=== PATIENT | female | born 1980 | race Hispanic/Latino ===

== ENCOUNTER 2017-05-28 23:05 | Inpatient (IN) | payer BC, MEDICAID ==
[~2017-05-28] VITALS: Ht 167.6 cm; Wt 150.1 kg
[2017-05-28] MEDS ORDERED: LACTATED RINGERS 1000ML 1,000 ML IV PRN (23:46)
[2017-05-28 23:47] LABS: BILIRUBIN,URINE Negative (NEGATIVE); COLOR,URINE Yellow (YELLOW); GLUCOSE, URINE (UA) Negative (NEGATIVE); KETONES,URINE Negative (NEGATIVE); LEUKOCYTE ESTERASE ,URINE Large (NEGATIVE); NITRATE,URINE Negative (NEGATIVE); OCCULT BLOOD,URINE Large (NEGATIVE); PH,URINE 6.5 (5.0-8.0); PROTEIN,URINE Negative (NEGATIVE)
[2017-05-28 23:52] LABS: APPEARANCE,URINE SLIGHTLY CLOUDY (CLEAR)
[2017-05-28 23:57] LABS: HEMATOCRIT 34.6 % (36-48); MEAN CORPUSCULAR HEMOGLOBIN 27.3 pg (27.0-33.0); MEAN CORPUSCULAR HGB CONC 33.4 g/dL (32.0-36.0); MEAN CORPUSCULAR VOLUME 81.7 fL (79-99); PLATELET COUNT (AUTO) 224 K/uL (130-400); RED BLOOD CELL COUNT(AUTO) 4.23 MIL/uL (4.00-5.50); WHITE BLOOD COUNT (AUTO) 13.4 K/uL (4.8-10.8)
[2017-05-28 23:57] LABS: BACTERIA,URINE Few /HPF (None Seen); WBC,URINE 26-50 /HPF (0-1)
[2017-05-28 23:58] LABS: SQUAMOUS EPITHELIAL CELL,UR Few /LPF (0-2)
[2017-05-29] MEDS ORDERED: BUTORPHANOL TARTRATE 2 MG/ML IVP ONE
[2017-05-29] MEDS ORDERED: LIDOCAINE HCL 1% 20 ML VIAL ONE (02:38)
[2017-05-29] MEDS ORDERED: OXYTOCIN 10 USP UNITS/ML ONE ×2 (02:38→09:20)
[2017-05-29] MEDS: OXYTOCIN-LR 20 UNITS/1000 ML 1,000 ML IV SCH ×2 (03:05→09:25)
[2017-05-29] MEDS ORDERED: ACETAMINOPHEN 325 MG TAB PO PRN (03:45)
[2017-05-29] MEDS ORDERED: BENZOCAINE/LANOLIN/ALOE VERA 60 ML AEROSOL TP PRN (03:45)
[2017-05-29] MEDS ORDERED: IBUPROFEN 600 MG TABLET PO PRN (03:45)
[2017-05-29] MEDS ORDERED: DIPH,PERTUSS(ACELL),TET VAC/PF 0.5 ML VIAL IM PRN (03:45)
[2017-05-29] MEDS ORDERED: LANOLIN 30GM OINTMENT TP PRN (03:45)
[2017-05-29] MEDS ORDERED: WITCH HAZEL 1 PAD TP PRN (03:45)
[2017-05-29] MEDS: IBUPROFEN 800 MG TAB PO PRN ×3 (04:14→21:07)
[2017-05-29 06:59] LABS: RAPID PLASMA REAGIN NONREACTIVE (NONREACTIVE)
[2017-05-29] MEDS ORDERED: LACTATED RINGERS 1000ML 1,000 ML IV ONE (09:19)
[2017-05-29 11:47] VITALS: BP 118/65
[2017-05-29 17:31] VITALS: BP 121/68
[2017-05-29 19:30] VITALS: BP 98/56
[2017-05-29] MEDS: DOCUSATE SODIUM 100 MG CAP PO SCH (21:07)
[2017-05-30 00:05] VITALS: BP 99/54
[2017-05-30 04:00] VITALS: BP 95/51
[2017-05-30 06:44] LABS: HEMATOCRIT 32.9 % (36-48); MEAN CORPUSCULAR HEMOGLOBIN 27.7 pg (27.0-33.0); MEAN CORPUSCULAR HGB CONC 33.6 g/dL (32.0-36.0); MEAN CORPUSCULAR VOLUME 82.5 fL (79-99); PLATELET COUNT (AUTO) 244 K/uL (130-400); RED BLOOD CELL COUNT(AUTO) 3.98 MIL/uL (4.00-5.50); RED CELL DISTRIBUTION WIDTH 14.9 % (11.0-15.5); WHITE BLOOD COUNT (AUTO) 12.4 K/uL (4.8-10.8)
[2017-05-30 07:32] VITALS: BP 111/66
[2017-05-30] MEDS: IBUPROFEN 800 MG TAB PO PRN (07:44)
[2017-05-30] MEDS: DOCUSATE SODIUM 100 MG CAP PO SCH (09:25)
[2017-05-30 11:22] VITALS: BP 115/63
[2017-05-30 15:43] VITALS: BP 106/56
[2017-05-31 05:19] LABS: HEPATITIS Bs ANTIGEN SCREEN P Negative (Negative)
== END 2017-05-30 15:55 | disposition home or self-care (01) | DRG 775 ==
LOC: EDH 23:05 → LDH 23:10 → OBSVTOIN 23:10 → WSH 05-29 17:07
PROVIDERS: ADMIT Obstetrics & Gynecology; ATTEND Obstetrics & Gynecology
PROC: 10E0XZZ Delivery of Products of Conception, External Approach (ICD-10-PCS; principal; 2017-05-28)
PROC: 3E0234Z Introduction of Serum, Toxoid and Vaccine into Muscle, Percutaneous Approach (ICD-10-PCS; 2017-05-28)
DX: O80 Encounter for full-term uncomplicated delivery (principal); Z23 Encounter for immunization; Z3A.40 40 weeks gestation of pregnancy; Z37.0 Single live birth
CPT/HCPCS: 36415; 81001; 85027; 86592; 86701; 86850; 86900; 86901; 87340; 87390; J0595; J2590; J7120